=== PATIENT | male | born 1955 ===

== ENCOUNTER 2018-01-08 15:44 | Observation (INO) | payer OTHER ==
[~2018-01-08] VITALS: Ht 231.1 cm; Wt 79.5 kg
[2018-01-08] MEDS ORDERED: VITAMIN D1000 UNIT PO (15:52)
--- NOTE | 2018-01-08 16:08 | ED GI/GU/ABDOMINAL COMPLAINT ---
History of Present Illness General Chief Complaint: General Adult Stated Complaint: PT HAS A PAIN UNDER THE RT RIB Source: patient, old records Exam Limitations: no limitations Vital Signs & Intake/Output Vital Signs & Intake/Output Vital Signs Date Time Temp Pulse Resp B/P B/P Pulse O2 O2 Flow FiO2 Mean Ox Delivery Rate 01/09 0632 98.3 69 20 100/60 95 Room Air 01/09 0030 97.8 79 18 120/70 96 Room Air 01/09 0020 96 Room Air 01/08 1959 98.6 82 20 141/82 98 Room Air 01/08 1806 98.4 73 20 143/83 97 Room Air 01/08 1623 Room Air 01/08 1551 97.9 82 18 161/83 97 Room Air ED Intake and Output 01/09 0000 01/08 1200 Intake Total Output Total Balance Patient 178 lb Weight Weight Reported by Patient Measurement Method Allergies Coded Allergies: Penicillins (FAMILY SAID "VERY BAD ALLERGY" 01/08/18) Reconcile Medications Cholecalciferol (Vitamin D3) (Vitamin D) 1,000 UNIT TABLET 1 TAB PO DAILY SUPPLEMENT (Reported) Triage Note: PT TO ER C/C 5 DAY HX OF UMBILICAL ABD PAIN AND RUQ PAIN WORSE WHEN LAYING FLAT. DENIES N/V/D. DENIES URINARY S/S. PT STATES HAS HX OF GALLSTONES. Triage Nurses Notes Reviewed? yes Onset: Abrupt Duration: constant, waxing and waning Timing: recent history Quality/Severity: aching, moderate Severity Numbers: 5 Location: periumbilical, right upper quadrant Radiation: periumbilical Activities at Onset: eating Prior Abdominal Problems: similar symptoms No Modifying Factors: none Associated Symptoms: denies HPI: 62-year-old male with history of gallstones presents to ER complaining of 5 day history of right upper quadrant abdominal pain radiating to his umbilicus that's constant however waxing and waning in intensity. He denies any associated nausea vomiting diarrhea. He's been taking Tylenol without improvement. No chest pain or pain with inspiration. No fever no chills. no history of abd surgeries in the past. these symptoms started after eating easter dinner. (Estrella LOGAN,Ed) Past History Travel History Traveled to [place] past 21 day No Medical History Any Pertinent Medical History? see below for history Gastrointestinal: cholelithiasis Surgical History Surgical History: non-contributory Psychosocial History What is your primary language Irish Tobacco Use: Quit >30 days ago Family History Hx Contributory? No (Ed Zavala) Review of Systems Review of Systems Constitutional: Reports: see HPI. Comments Review of systems: See HPI, All other systems negative. Constitutional, no chills no fever, no malaise HEENT: no sore throat no congestion, Cardiovascular: No chest pain , no palpitation Skin: no rashes, no change in skin Respiratory: No dyspnea no cough GI: No nausea no vomiting, no diarrhea, no bloating/constipation : No dysuria Muscle skeletal: No joint pain, no back pain, no neck pain, Neurologic: , no headache Heme/endocrine: No bruising Immunology: No lymphadenopathy (Ed Zavala) Physical Exam Physical Exam General Appearance: well developed/nourished, alert, awake Gastrointestinal: soft, tenderness Comments: Well-developed well-nourished person in no acute distress HEENT: Normal EENT exam; PERRL, EOMI, HEAD is atraumatic. moist mucous membranes. Neck: Supple, normal range of motion Back: Nontender, no CVA tenderness. Full range of motion Cardiovascular: Regular rate and rhythms no murmurs rubs or gallops, normal JVP Respiratory: Chest nontender.There were no bony deformities, no asymmetry. No respiratory distress. Patient speaking in full complete sentences. Breath sounds clear to auscultation bilaterally: NO W/R/R Abdomen: Soft, MILD R mid tendernes, neg murphys, no rlq tenderness, nondistended, no appreciable organomegaly. Normal bowel sounds. No rebound/ guarding Extremity: No edema, full range of motion of extremities Neuro: Alert oriented x3, motor sensory normal, There were no obvious focal neurologic abnormalities. Skin: No appreciable rash on exposed skin, skin is warm and dry. no jaundice Psych: Mood and affect is normal, memory and judgment is normal. Core Measures ACS in differential dx? No Sepsis Present: No Sepsis Focused Exam Completed? Yes (Ed Zavala) Progress Differential Diagnosis: appendicitis, biliary colic, bowel obstruction, colon cancer, cholecystitis, gastritis, hepatitis, hernia, inflamm bowel dis, pyelonephritis, ureterolithiasis Plan of Care: Orders Procedure Date/time Status Clear Liquid Diet 01/09 B Active HEPATIC FUNCTION PANEL 01/09 600 Active CBC WITHOUT DIFFERENTIAL 01/09 600 Active BASIC ELECTROLYTES PLUS BUN&CR 01/09 600 Active Vital Signs 01/096 Active Teach/Educate 01/10 16 Active Pain Treatment and Response 01/10 16 Active Nutritional Intake, Monitor 01/10 16 Active Isolation 01/096 Active Intake & Output 01/096 Active Patient Care Conference 01/096 Active Activity/Ambulation 01/10 16 Active FingerStick- Glucose 01/08 2001 Active Patient Data 01/[address] in observation 01/08 185 Active ED Holding Orders 01/08 185 Active Vital Signs 01/08 185 Active Code Status 01/08 185 Active Intake & Output 01/08 1623 Active TROPONIN LEVEL 01/08 1601 Complete LIPASE 01/08 1601 Complete COMPREHENSIVE METABOLIC PANEL 01/08 1601 Complete CBC WITHOUT DIFFERENTIAL 01/08 1601 Complete AMYLASE 01/08 1601 Complete EKG 01/08 1601 Active INCENTIVE SPIROMETRY TRX (GEN) 01/08 UNK Active Current Medications Sig/Prudencio Start time Last Medication Dose Stop Time Status Admin Pantoprazole Sodium 40 MG DAILY 01/09 1000 AC (Protonix) Heparin Sodium 5,000 UNIT Q8 01/09 600 AC 01/09 (Porcine) 0527 Clindamycin 600 MG IQ8 01/09 0500 AC 01/09 (Cleocin) 01/09 162 0527 Dextrose/Water 50 ML (D5W) Morphine Sulfate 2 MG Q4-6 PRN PRN 01/08 2315 AC (Morphine) Oxycodone HCl 5 MG Q4-6 PRN PRN 01/08 2315 AC (Roxicodone) Oxycodone HCl 10 MG Q4-6 PRN PRN 01/08 2315 AC (Roxicodone) Acetaminophen 1,000 MG Q6P PRN 01/08 1915 AC (Ofirmev) N/A 1 UNIT (No Carrier) Ampicillin Sodium/ 3,000 MG ONCE ONE 01/08 1915 CAN Sulbactam Sodium 01/09 1944 (Unasyn) Sodium Chloride 100 ML (Normal Saline 0.9%) Dextrose/Sodium 1,000 ML Q8H 01/08 1915 AC 01/09 Chloride 0026 (D5-Normal Saline) Ondansetron HCl 4 MG Q6P PRN 01/08 1915 AC (Zofran) Laboratory Tests 01/09/18 0710: Sodium Pending, Potassium Pending, Chloride Pending, Carbon Dioxide Pending, Anion Gap Pending, BUN Pending, Creatinine Pending, BUN/Creatinine Ratio Pending , Total Bilirubin Pending, Direct Bilirubin Pending, AST Pending, ALT Pending, Alkaline Phosphatase Pending, Total Protein Pending, Albumin Pending, CBC w Diff Pending, WBC Pending, RBC Pending, Hgb Pending, Hct Pending, MCV Pending, MCH Pending, MCHC Pending, RDW Pending, Plt Count Pending, MPV Pending 01/08/18 1620: Anion Gap 17 H, Estimated GFR > 60, BUN/Creatinine Ratio 10.0, Glucose 133 H, Calcium 9.6, Total Bilirubin 0.6, AST 32, ALT 44, Alkaline Phosphatase 82, Troponin I < 0.01, Total Protein 7.6, Albumin 4.0, Globulin 3.6, Albumin/ Globulin Ratio 1.1, Amylase < 30 L, Lipase 33, CBC w Diff NO MAN DIFF REQ, RBC 4.60 L, MCV 91.7, MCH 30.9, MCHC 33.7, RDW 12.1, MPV 7.7, Gran % 76.8 H, Lymphocytes % 14.7 L, Monocytes % 7.6, Eosinophils % 0.5, Basophils % 0.4, Absolute Granulocytes 9.4 H, Absolute Lymphocytes 1.8, Absolute Monocytes 0.9 H, Absolute Eosinophils 0.1, Absolute Basophils 0 01/08/18 1601: Urine Color Cancelled, Urine Clarity Cancelled, Urine pH Cancelled, Ur Specific [place] Cancelled, Urine Protein Cancelled, Urine Ketones Cancelled, Urine Nitrite Cancelled, Urine Bilirubin Cancelled, Urine Urobilinogen Cancelled, Ur Leukocyte Esterase Cancelled, Ur Microscopic Cancelled, Urine Hemoglobin Cancelled, Urine Glucose Cancelled pt declining anythign for pain when offered. labs and ct ordered. 1720- patient back from CAT scan now requesting something for pain Toradol 30 mg IV ordered 1740 D/W THE PT HIS CT RESULTS, HE IS DECLINING ANYTHING STRONGER FOR PAIN WHEN OFFERED. REPORTS TORADOL DID NOT HELP, CALL PLACED TO SURGERY 181 case d/w dr man will have surgical pa jamie pt 1820 on repeat evaluation patient is again declining anything for pain stating he wants to be evaluated by the surgery team prior to being medicated with something stronger Diagnostic Imaging: Viewed by Me: CT Scan. Discussed w/RAD: CT Scan. Radiology Impression: PATIENT: DAMEON STACK PRESENT AGE: 62 PATIENT ACCOUNT NO: [id number] : 57 LOCATION: [facility] ORDERING PHYSICIAN: Ed LOGAN SERVICE DATE: 01/08/18 EXAM TYPE: CAT - CT ABD & PELVIS W IV CONTRAST EXAMINATION: CT ABDOMEN AND PELVIS WITH CONTRAST CLINICAL INFORMATION: Right upper quadrant epigastric pain. COMPARISON: None TECHNIQUE: Multidetector volumetric imaging was performed of the abdomen and pelvis following IV administration of 95 mL of Optiray 320 intravenous contrast. Sagittal and coronal reformatted images were obtained on the technologist's workstation. DLP: 296 mGy-cm FINDINGS: LUNG BASES: There is a degree of bibasilar bronchiectasis with adjacent nonmasslike mild parenchymal opacification/atelectasis/fibrosis. There is a 0.5 cm left lower lobe pulmonary nodule. No pleural effusion. LIVER, GALLBLADDER, AND BILIARY TREE: The liver is normal in size, shape, and attenuation. No focal hepatic lesion or biliary ductal dilatation is present. Cholelithiasis is demonstrated. The gallbladder is distended. There is subtle mural indistinctness and pericholecystic stranding, which is concerning for cholecystitis. PANCREAS: Unremarkable. SPLEEN: Unremarkable. ADRENAL GLANDS: Unremarkable. KIDNEYS AND URETERS: Subcentimeter hypodense lesion within the left kidney is too small to characterize and CT scan , statistically most likely to represent a cyst. Bilateral nephrograms are symmetric without hydronephrosis. No renal or ureteral calculi. BLADDER: Unremarkable. GASTROINTESTINAL TRACT: Bowel gas pattern is nonobstructive. No evidence of acute bowel inflammation. There is colonic diverticulosis without evidence of diverticulitis. The appendix is normal. ABDOMINAL WALL: No significant hernia is appreciated. LYMPH NODES: No adenopathy. VASCULAR: Minimal atherosclerotic calcification. PELVIC VISCERA: No free pelvic fluid. Prostate gland and seminal vesicles are unremarkable. OSSEOUS STRUCTURES: No acute osseous abnormalities. Degenerative disc disease at L5-S1. IMPRESSION: 1. Cholelithiasis. Distended gallbladder with mild pericholecystic stranding is concerning for acute cholecystitis. 2. No biliary ductal dilatation. 3. Unremarkable appearance of the pancreas. 4. Diverticulosis without evidence of diverticulitis. 5. A 0.5 cm left lower lobe pulmonary nodule. According to the UPDATED 2017 Fleischner Society recommendations, the advised follow-up imaging for solid nodules < 6 mm is: LOW RISK PATIENT: No routine follow-up. HIGH RISK PATIENT: Optional CT at 12 months. 6. Bibasilar lower lobe bronchiectasis with mild adjacent parenchymal opacification, consider fibrosis, atelectasis, or other consolidation. DICTATED BY: Donell Steele MD DATE/TIME DICTATED:01/08/181726 WEARING APPAREL SHAKER:BOONE DATE/TIME TRANSCRIBED:01/08/181726 CONFIDENTIAL, DO NOT COPY WITHOUT APPROPRIATE AUTHORIZATION. <Electronically signed in Other Vendor System> SIGNED BY: Donell Steele MD 01/08/18 173 Initial ED EKG: normal intervals, normal p-waves, normal QRS complex, normal sinus rhythm (Ed Zavala) Departure Departure Time of Disposition: 1900 Disposition: STILL A PATIENT Condition: Stable Clinical Impression Primary Impression: Cholecystitis Secondary Impressions: Diverticulosis, Lung nodule Referrals: Albin Salomon MD (PCP/Family) Departure Forms: Customer Survey General Discharge Information (Ed Zavala) Observation Note Spoke With: Antwon Man DO Physician Advisor Notified: VALENTE RODRIGUEZ MD Place Patient In: Non-ED OBS Care Area Rationale for Observation: My rational for observation is as follows [PRE-OP FOR LAP MELE]. PA/GUT CLEANER Co-Sign Statement Statement: ED Attending supervision documentation- [x] I saw and evaluated the patient. I have also reviewed all the pertinent lab results and diagnostic results. I agree with the findings and the plan of care as documented in the PA's/GUT CLEANER's documentation. [x] I have reviewed the ED Record and agree with the PA's/GUT CLEANER's documentation. [] Additions or exceptions (if any) to the PAs/GUT CLEANER's note and plan are summarized below: [RUQ PAINWITH HX OF CHOLELITHIASIS. CT SCAN POSSIBILITY OF ACUTE CHOLECYSTITIS. SURGERY INVOLVED.] (Valente Rodriguez MD)
[2018-01-08 16:30] LABS: ABSOLUTE BASOPHIL COUNT 0 /CUMM (0.0-0.2); ABSOLUTE EOSINOPHIL COUNT 0.1 /CUMM (0.0-0.7); ABSOLUTE GRANULOCYTE CT 9.4 /CUMM (1.4-6.5); ABSOLUTE LYMPH COUNT 1.8 /CUMM (1.2-3.4); ABSOLUTE MONOCYTE COUNT 0.9 /CUMM (0.10-0.60); BASOPHIL % 0.4 % (0.0-2.0); EOSINOPHIL % 0.5 % (0-5); GRANULOCYTE % 76.8 % (42.2-75.2); HEMATOCRIT 42.1 % (42-52); MEAN CORPUSCULAR HGB 30.9 PG (27.0-31.0); MEAN CORPUSCULAR HGB CONC 33.7 G/DL (33.0-37.0); MEAN CORPUSCULAR VOLUME 91.7 FL (80.0-94.0); MEAN PLATELET VOLUME 7.7 FL (7.4-10.4); PLATELET COUNT 252 /CUMM (130-400); RBC DISTRIBUTION WIDTH 12.1 % (11.5-14.5); WHITE BLOOD CELL COUNT 12.2 /CUMM (4.8-10.8)
--- NOTE | 2018-01-08 17:39 | CT SCAN REPORT ---
EXAMINATION: CT ABDOMEN AND PELVIS WITH CONTRAST CLINICAL INFORMATION: Right upper quadrant epigastric pain. COMPARISON: None TECHNIQUE: Multidetector volumetric imaging was performed of the abdomen and pelvis following IV administration of 95 mL of Optiray 320 intravenous contrast. Sagittal and coronal reformatted images were obtained on the technologist's workstation. DLP: 296 mGy-cm FINDINGS: LUNG BASES: There is a degree of bibasilar bronchiectasis with adjacent nonmasslike mild parenchymal opacification/atelectasis/fibrosis. There is a 0.5 cm left lower lobe pulmonary nodule. No pleural effusion. LIVER, GALLBLADDER, AND BILIARY TREE: The liver is normal in size, shape, and attenuation. No focal hepatic lesion or biliary ductal dilatation is present. Cholelithiasis is demonstrated. The gallbladder is distended. There is subtle mural indistinctness and pericholecystic stranding, which is concerning for cholecystitis. PANCREAS: Unremarkable. SPLEEN: Unremarkable. ADRENAL GLANDS: Unremarkable. KIDNEYS AND URETERS: Subcentimeter hypodense lesion within the left kidney is too small to characterize and CT scan, statistically most likely to represent a cyst. Bilateral nephrograms are symmetric without hydronephrosis. No renal or ureteral calculi. BLADDER: Unremarkable. GASTROINTESTINAL TRACT: Bowel gas pattern is nonobstructive. No evidence of acute bowel inflammation. There is colonic diverticulosis without evidence of diverticulitis. The appendix is normal. ABDOMINAL WALL: No significant hernia is appreciated. LYMPH NODES: No adenopathy. VASCULAR: Minimal atherosclerotic calcification. PELVIC VISCERA: No free pelvic fluid. Prostate gland and seminal vesicles are unremarkable. OSSEOUS STRUCTURES: No acute osseous abnormalities. Degenerative disc disease at L5-S1. IMPRESSION: 1. Cholelithiasis. Distended gallbladder with mild pericholecystic stranding is concerning for acute cholecystitis. 2. No biliary ductal dilatation. 3. Unremarkable appearance of the pancreas. 4. Diverticulosis without evidence of diverticulitis. 5. A 0.5 cm left lower lobe pulmonary nodule. According to the UPDATED 2017 Fleischner Society recommendations, the advised follow-up imaging for solid nodules < 6 mm is: LOW RISK PATIENT: No routine follow-up. HIGH RISK PATIENT: Optional CT at 12 months. 6. Bibasilar lower lobe bronchiectasis with mild adjacent parenchymal opacification, consider fibrosis, atelectasis, or other consolidation.
--- NOTE | 2018-01-08 19:27 | History & Physical Pre-Op ---
Aline Brock 01/08/181912: General Information and HPI MD Statement: I have seen and personally examined DAMEON STACK and documented this H&P. The patient is a 62 year old M who presented with a patient stated chief complaint of [abdominal pain]. Source of Information: patient Exam Limitations: no limitations History of Present Illness: This 62 year old white male presents with nearly a week of abdominal pain. He reports following eating a lot of food on Wednesday, he started having mid and right upper abdominal pain, that has persisted through the week. He believes he may have had some chills and sweats at times. No nausea/vomiting. He doesn't believe he has had episodes of biliary colic, at least not like what he has been experiencing in the last week. He denies any other recent illnesses. No dizziness. No shortness of breath. No chest pains. No difficulty urinating. No changes with bowel habits. Allergies/Medications Home Med list Cholecalciferol (Vitamin D3) (Vitamin D) 1,000 UNIT TABLET 1 TAB PO DAILY SUPPLEMENT (Reported) Past History Medical History Gastrointestinal: cholelithiasis Musculoskeletal: chronic back pain Surgical History Pertinent Surgical History: none Past Family/Social History Family History Relations & Conditions if any MOTHER Gallstones FATHER, . Colon cancer in father Psychosocial History Where Do You Live? Home Who Do You Live With? spouse Services at Home None Smoking Status: Former Smoker ETOH Use: occasional use Employment History Employment: Employed Profession/Employer: rear load truck driver Review of Systems Review of Systems: admits: abdominal pain denies: dizziness, shortness of breath, chest pains, nausea/vomiting, dysuria Exam & Diagnostic Data Last 24 Hrs of Vital Signs/I&O Vital Signs Date Time Temp Pulse Resp B/P B/P Pulse O2 O2 Flow FiO2 Mean Ox Delivery Rate 01/08 1806 98.4 73 20 143/83 97 Room Air 01/08 1623 Room Air 01/08 1551 97.9 82 18 161/83 97 Room Air Intake & Output 01/08 1600 01/08 0800 01/08 0000 Intake Total Output Total Balance Patient 178 lb Weight Weight Reported by Patient Measurement Method Physical Exam: General - alert & oriented x 3. uncomfortable. no acute distress. Skin - warm, dry, and smooth. no jaundice appreciated. no rashes. Lungs - clear bilaterally. no w/r/r. Cardiac - s1s2. reg. Abdomen - soft. right upper quadrant tenderness appreciated with +murphys sign. no scars seen. Extremities - warm bilaterally. no c/c/e. calves soft and nontender b/l. Neuro - speech smooth and coordinated. no motor or sensory deficits appreciated. Last 24 Hrs of Labs/Imtiaz: Laboratory Tests 01/08/18 1620: Anion Gap 17 H, Estimated GFR > 60, BUN/Creatinine Ratio 10.0, Glucose 133 H, Calcium 9.6, Total Bilirubin 0.6, AST 32, ALT 44, Alkaline Phosphatase 82, Troponin I < 0.01, Total Protein 7.6, Albumin 4.0, Globulin 3.6, Albumin/ Globulin Ratio 1.1, Amylase < 30 L, Lipase 33, CBC w Diff NO MAN DIFF REQ, RBC 4.60 L, MCV 91.7, MCH 30.9, MCHC 33.7, RDW 12.1, MPV 7.7, Gran % 76.8 H, Lymphocytes % 14.7 L, Monocytes % 7.6, Eosinophils % 0.5, Basophils % 0.4, Absolute Granulocytes 9.4 H, Absolute Lymphocytes 1.8, Absolute Monocytes 0.9 H, Absolute Eosinophils 0.1, Absolute Basophils 0 01/08/18 1601: Urine Color Cancelled, Urine Clarity Cancelled, Urine pH Cancelled, Ur Specific [place] Cancelled, Urine Protein Cancelled, Urine Ketones Cancelled, Urine Nitrite Cancelled, Urine Bilirubin Cancelled, Urine Urobilinogen Cancelled, Ur Leukocyte Esterase Cancelled, Ur Microscopic Cancelled, Urine Hemoglobin Cancelled, Urine Glucose Cancelled Diagnostic Data Other Results EXAM TYPE: CAT - CT ABD & PELVIS W IV CONTRAST EXAMINATION: CT ABDOMEN AND PELVIS WITH CONTRAST CLINICAL INFORMATION: Right upper quadrant epigastric pain. COMPARISON: None TECHNIQUE: Multidetector volumetric imaging was performed of the abdomen and pelvis following IV administration of 95 mL of Optiray 320 intravenous contrast. Sagittal and coronal reformatted images were obtained on the technologist's workstation. DLP: 296 mGy-cm FINDINGS: LUNG BASES: There is a degree of bibasilar bronchiectasis with adjacent nonmasslike mild parenchymal opacification/atelectasis/fibrosis. There is a 0.5 cm left lower lobe pulmonary nodule. No pleural effusion. LIVER, GALLBLADDER, AND BILIARY TREE: The liver is normal in size, shape, and attenuation. No focal hepatic lesion or biliary ductal dilatation is present. Cholelithiasis is demonstrated. The gallbladder is distended. There is subtle mural indistinctness and pericholecystic stranding, which is concerning for cholecystitis. PANCREAS: Unremarkable. SPLEEN: Unremarkable. ADRENAL GLANDS: Unremarkable. KIDNEYS AND URETERS: Subcentimeter hypodense lesion within the left kidney is too small to characterize and CT scan, statistically most likely to represent a cyst. Bilateral nephrograms are symmetric without hydronephrosis. No renal or ureteral calculi. BLADDER: Unremarkable. GASTROINTESTINAL TRACT: Bowel gas pattern is nonobstructive. No evidence of acute bowel inflammation. There is colonic diverticulosis without evidence of diverticulitis. The appendix is normal. ABDOMINAL WALL: No significant hernia is appreciated. LYMPH NODES: No adenopathy. VASCULAR: Minimal atherosclerotic calcification. PELVIC VISCERA: No free pelvic fluid. Prostate gland and seminal vesicles are unremarkable. OSSEOUS STRUCTURES: No acute osseous abnormalities. Degenerative disc disease at L5-S1. IMPRESSION: 1. Cholelithiasis. Distended gallbladder with mild pericholecystic stranding is concerning for acute cholecystitis. 2. No biliary ductal dilatation. 3. Unremarkable appearance of the pancreas. 4. Diverticulosis without evidence of diverticulitis. 5. A 0.5 cm left lower lobe pulmonary nodule. According to the UPDATED 2017 Fleischner Society recommendations, the advised follow-up imaging for solid nodules < 6 mm is: LOW RISK PATIENT: No routine follow-up. HIGH RISK PATIENT: Optional CT at 12 months. 6. Bibasilar lower lobe bronchiectasis with mild adjacent parenchymal opacification, consider fibrosis, atelectasis, or other consolidation. DICTATED BY: Donell Steele MD DATE/TIME DICTATED:01/08/181726 GARDENING SUPERVISOR:BOONE DATE/TIME TRANSCRIBED:01/08/181726 Assessment/Plan Assessment/Plan: This 62 year old male with no significant past medical history presents with nearly a week of abdominal pain, and CT imaging suggesting acute calculous cholecystitis npo since veggie broth around noon except for sips of water iv antibiotics to be given in ED pain medication as needed laparoscopic vs open cholecystectomy by shortly, to be consented full code status 23 hour observation given possibility of discharge to home tomorrow As Ranked By This Provider Problem List: 1. Cholecystitis Copies To: Umm MCKINLEY,Albin Swartz Antwon Man DO 01/08/18 6688: General Information and HPI Allergies/Medications Allergies: Coded Allergies: Penicillins (FAMILY SAID "VERY BAD ALLERGY" 01/08/18) Attending MD Review Statement Attending Statement Attending MD Statement: examined this patient, discuss w/resident/PA/SUPERVISOR DRY CLEANING, agreed w/resident/PA/SUPERVISOR DRY CLEANING, discussed with family, reviewed EMR data (avail), reviewed images Attending Assessment/Plan: Patient seen and examined, agree with above. Abdominal pain for several days, has been getting worse especially with food. AVSS. Abd-soft, +RUQ tenderness with guarding. Labs WBC 12. CT scan - acute cholecystitis. NPO/IVF/IV Abx, plan for Lap Shannon tonight. D/W patient, family and staff.
--- NOTE | 2018-01-08 19:28 | Admission Core Measures ---
Acute Coronary Syndrome (CM) ACS Core Measures Acute Coronary Syndrome Diagnosis No Congestive Heart Failure (NEW) CHF Core Measures Congestive Heart Failure Diagnosis No Cerebrovascular Accident (NEW) CVA Core Measures CVA/TIA Diagnosis No Venous Thromboembolism VTE Core Darrell (View Protocol) VTE Risk Factors Surgery No Mechanical VTE Prophylaxis d/t N/A MechProphylax Ordered No VTE Pharm Prophylaxis d/t NA PharmProphylax ordered Problem List As ranked by this Provider includes Assessment & Plan 1. Cholecystitis HOME MEDS Home Med List Cholecalciferol (Vitamin D3) (Vitamin D) 1,000 UNIT TABLET 1 TAB PO DAILY SUPPLEMENT (Reported)
--- NOTE | 2018-01-08 23:20 | Operative Report ---
Operative/Inv Procedure Report Surgery Date: 01/08/18 Name of Procedure: Laparoscopic Cholecystectomy Pre-Operative Diagnosis: Acute/Chronic cholecystitis/cholelithiasis Post-Operative Diagnosis: Same Estimated Blood Loss: 150 ml Surgeon/Respiratory Medicine Physician: Antwon Man DO Anesthesia: general endotracheal tube IV Fluids: 1800 cc Drains: None Specimens: Gallbladder Complications: None Condition: Stable Operative Indication: This is a 62-year-old male that presented to the emergency room with several days of abdominal pain. After appropriate workup was completed patient was diagnosed with acute cholecystitis. A laparoscopic possible open cholecystectomy was discussed in detail. All risks including but not limited to bleeding, infection, bile leak, and injury to surrounding duct/bowel were discussed in detail. The patient understood everything and decided to proceed. Operative/Procedure Note Note: The patient was brought to the operating room and placed on the operating room table in supine position. Venodyne stockings were placed and adequate general endotracheal anesthesia was obtained. The patient was prepped and draped in standard surgical fashion. We began the procedure by making a 2 cm transverse incision in the infraumbilical crease. The incision was carried down to the fascia, once the fascia was clearly visualized it was picked up between 2 satish clamps. The fascia was divided in the midline and once we entered the peritoneum 2 stay 0 Vicryl sutures were placed on each side. A 12 mm blunt port was inserted and the abdominal cavity was insufflated to 15 mmHg. A 10 mm 30 laparoscope was introduced and upon initial examination no obvious gross pathology was seen. We did note a markedly distended gallbladder in the right upper quadrant. Accessory trochars were placed, all 5 mm, one in the epigastrium and 2 in the right upper quadrant (one in the midclavicular line and one in the anterior axillary line, both 2 fingerbreadths below the costal margin ). We attempted to decompress the gallbladder with the decompression needle, however there was very thick bile and it wasnt draining through the needle. The gallbladder was grasped with the lateralmost trocar and retracted up over the liver. Using the other 2 accessory trocars the infundibulum was grasped and the peritoneum was lysed using blunt dissection and using hook electrocautery. Dissection took some time due to chronic inflammation and thick wall. The cystic duct and cystic artery were visualized. The common bile duct was visualized and it was away from our area of dissection. The cystic duct and artery were skeletonized and divided between clips, 3 clips to stay and one clip on the gallbladder side for the duct and 2 clips to stay and one clip on the gallbladder side for the artery. The gallbladder was dissected off the liver bed using hook electrocautery maintaining hemostasis. Once again dissection took some time due to chronic inflammation. Prior to completely removing the gallbladder off the liver bed we examined the area of dissection no obvious bile leak or bleeding was noted, the clips appeared to be in good position. The gallbladder was completely detached from the liver bed. We switched to a 5 mm laparoscope and a 10 mm Endobag was introduced through the umbilical trocar site. The gallbladder was placed in the bag and removed through the umbilicus. The abdomen was reinsufflated. We switched back to a 10 mm laparoscope and examined our area of dissection. No obvious bile leak or bleeding was noted. There was a lot of oozing from the liver bed so 2 pieces of surgicel were used to pack the gallbladder fossa. The right upper quadrant was irrigated until clear. All ports were removed under direct visualization, no obvious bleeding was noted. The umbilical trocar site was closed using 0 Vicryl suture. The skin was closed using 4-0 Monocryl. Steri-Strips and dressings were placed. The patient was successfully extubated and transferred to the recovery room in stable condition. The patient tolerated the procedure well with no complications. Findings: Markedly distended gallbladder, very thick gallbladder wall, large gallstones CC: Umm MCKINLEY,Albin Swartz
--- NOTE | 2018-01-08 23:24 | RADIOLOGY REPORT ---
EXAMINATION: XR PORTABLE CHEST CLINICAL INFORMATION: Atelectasis rule out pneumonia hypoxia COMPARISON: None TECHNIQUE: Portable frontal view of the chest was obtained. FINDINGS: Left hemidiaphragm is obscured probably by underlying infiltrate atelectasis and/or pleural effusion. There is only mild vascular congestion. IMPRESSION: Left pleural effusion with probably underlying infiltrate and/or atelectasis. Follow-up chest PA and lateral recommended when patient's condition permits.
[2018-01-09 00:30] VITALS: BP 120/70
[2018-01-09 06:32] VITALS: BP 100/60
[2018-01-09 08:17] LABS: ABSOLUTE BASOPHIL COUNT 0 /CUMM (0.0-0.2); ABSOLUTE EOSINOPHIL COUNT 0 /CUMM (0.0-0.7); ABSOLUTE GRANULOCYTE CT 6.2 /CUMM (1.4-6.5); ABSOLUTE LYMPH COUNT 0.8 /CUMM (1.2-3.4); ABSOLUTE MONOCYTE COUNT 0.3 /CUMM (0.10-0.60); BASOPHIL % 0.2 % (0.0-2.0); EOSINOPHIL % 0 % (0-5); GRANULOCYTE % 84.1 % (42.2-75.2); MEAN CORPUSCULAR HGB 31.3 PG (27.0-31.0); MEAN CORPUSCULAR HGB CONC 33.8 G/DL (33.0-37.0); MEAN CORPUSCULAR VOLUME 92.5 FL (80.0-94.0); MEAN PLATELET VOLUME 8.1 FL (7.4-10.4); PLATELET COUNT 226 /CUMM (130-400); RBC DISTRIBUTION WIDTH 12.4 % (11.5-14.5); RED BLOOD CELL CT 3.76 /CUMM (4.70-6.10); WHITE BLOOD CELL COUNT 7.3 /CUMM (4.8-10.8)
[2018-01-09 09:15] LABS: HEMATOCRIT 34.8 % (42-52)
--- NOTE | 2018-01-09 10:16 | PN- General Surgery ---
Subjective Subjective: PT IN BED, PAIN CONTROLLED, WANTS TO GO HOME TODAY. VOIDING, PASSING GAS, NO BM AMBULATING DENEIS NAUSEA, TOLERATING CLEARS DENIES CP/SOB, FEVERS Objective Vital Signs and I&Os Vital Signs Date Time Temp Pulse Resp B/P B/P Pulse O2 O2 Flow FiO2 Mean Ox Delivery Rate 01/09 0632 98.3 69 20 100/60 95 Room Air 01/09 0030 97.8 79 18 120/70 96 Room Air 01/09 0020 96 Room Air 01/08 1959 98.6 82 20 141/82 98 Room Air 01/08 1806 98.4 73 20 143/83 97 Room Air 01/08 1623 Room Air 01/08 1551 97.9 82 18 161/83 97 Room Air Intake & Output 01/09 1600 01/09 0801/09 0000 01/08 1600 01/08 0000 Intake Total 1040 Output Total 500 Balance 540 Intake, IV 800 Intake, Oral 240 Number 0 Bowel Movements Output, Urine 500 Patient 175 lb 178 lb Weight Weight Reported by Patient Measurement Method Physical Exam: GEN-NAD, RESTING COMFORTABLY RESP-CLEAR CARDIAC-RRR ABD- ND, +BS, SOFT, NT. DRESSINGS CLEAN AND DRY Current Medications: Current Medications Sig/Prudencio Start time Last Medication Dose Route Stop Time Status Admin Acetaminophen 1,000 MG Q6P PRN 01/08 1915 AC N/A 1 UNIT IV Ampicillin Sodium/ 0 .STK-MED ONE 01/09 1920 DC Sulbactam Sodium .ROUTE Ampicillin Sodium/ 3,000 MG ONCE ONE 01/08 1915 CAN Sulbactam Sodium IV 01/08 194 Sodium Chloride 100 ML Ceftriaxone Sodium 0 .STK-MED ONE 01/08 1931 DC .ROUTE Ceftriaxone Sodium 1,000 MG ONCE ONE 01/08 1930 DC 01/08 IV 01/08 1931 193 Clindamycin 600 MG IQ8 01/09 0500 AC 01/09 Dextrose/Water 50 ML IV 01/09 162 0527 Dextrose/Sodium 1,000 ML Q8H 01/08 1915 AC 01/09 Chloride IV 0830 Fentanyl Citrate 250 MCG .STK-MED ONE 01/08 2013 DC IM 01/08 2014 Fentanyl Citrate 100 MCG .STK-MED ONE 01/08 2013 DC IM 01/08 2014 Heparin Sodium 5,000 UNIT Q8 01/09 06 AC 01/09 (Porcine) SC 0527 Ketorolac 30 MG Q6-PRN PRN 01/08 1915 DC Tromethamine IV Ketorolac 0 .STK-MED ONE 01/08 173 DC Tromethamine .ROUTE Ketorolac 30 MG ONCE ONE 01/08 1730 DC 01/08 Tromethamine IV 01/08 1731 1727 Metronidazole 500 MG ONCE ONE 01/08 1930 DC 01/08 N/A 1 UNIT IV 01/08 Midazolam HCl 2 MG .STK-MED ONE 01/08 2014 DC IM 01/08 2015 Morphine Sulfate 2 MG Q4-6 PRN PRN 01/08 2315 AC IV Ondansetron HCl 4 MG Q6P PRN 01/08 1915 AC IV Oxycodone HCl 5 MG Q4-6 PRN PRN 01/08 2315 AC PO Oxycodone HCl 10 MG Q4-6 PRN PRN 01/08 231 AC PO Pantoprazole Sodium 40 MG DAILY 01/09 1000 AC 01/09 IV 0830 Results Last 48 Hours of Labs: Laboratory Tests 01/09 01/08 0710 1620 Chemistry Sodium (137 - 145 mmol/L) 141 140 Potassium (3.5 - 5.1 mmol/L) 4.4 3.8 Chloride (98 - 107 mmol/L) 104 102 Carbon Dioxide (22 - 30 mmol/L) 24 21 L Anion Gap (5 - 16) 13 17 H BUN (9 - 20 mg/dL) 8 L 8 L Creatinine (0.7 - 1.2 mg/dL) 0.8 0.8 Estimated GFR (>60 ml/min) > 60 > 60 BUN/Creatinine Ratio (7 - 25 %) 10.0 10.0 Glucose (65 - 99 mg/dL) 133 H Calcium (8.4 - 10.2 mg/dL) 9.6 Total Bilirubin (0.2 - 1.3 mg/dL) 0.6 0.6 Direct Bilirubin (< 0.4 mg/dL) 0.4 AST (17 - 59 U/L) 92 H 32 ALT (21 - 72 U/L) 101 H 44 Alkaline Phosphatase (< 127 U/L) 68 82 Troponin I (<0.11 ng/ml) < 0.01 Total Protein (6.3 - 8.2 g/dL) 6.0 L 7.6 Albumin (3.5 - 5.0 g/dL) 3.1 L 4.0 Globulin (1.9 - 4.2 gm/dL) 3.6 Albumin/Globulin Ratio (1.1 - 2.2 %) 1.1 Amylase (30 - 110 U/L) < 30 L Lipase (23 - 300 U/L) 33 Hematology CBC w Diff NO MAN DIFF REQ NO MAN DIFF REQ WBC (4.8 - 10.8 /CUMM) 7.3 12.2 H RBC (4.70 - 6.10 /CUMM) 3.76 L 4.60 L Hgb (14.0 - 18.0 G/DL) 11.8 L 14.2 Hct (42 - 52 %) 34.8 L 42.1 MCV (80.0 - 94.0 FL) 92.5 91.7 MCH (27.0 - 31.0 PG) 31.3 H 30.9 MCHC (33.0 - 37.0 G/DL) 33.8 33.7 RDW (11.5 - 14.5 %) 12.4 12.1 Plt Count (130 - 400 /CUMM) 226 252 MPV (7.4 - 10.4 FL) 8.1 7.7 Gran % (42.2 - 75.2 %) 84.1 H 76.8 H Lymphocytes % (20.5 - 51.1 %) 11.1 L 14.7 L Monocytes % (1.7 - 9.3 %) 4.6 7.6 Eosinophils % (0 - 5 %) 0 0.5 Basophils % (0.0 - 2.0 %) 0.2 0.4 Absolute Granulocytes (1.4 - 6.5 /CUMM) 6.2 9.4 H Absolute Lymphocytes (1.2 - 3.4 /CUMM) 0.8 L 1.8 Absolute Monocytes (0.10 - 0.60 /CUMM) 0.3 0.9 H Absolute Eosinophils (0.0 - 0.7 /CUMM) 0 0.1 Absolute Basophils (0.0 - 0.2 /CUMM) 0 0 04/07 1601 Urines Urine Color Cancelled Urine Clarity Cancelled Urine pH Cancelled Ur Specific [place] Cancelled Urine Protein Cancelled Urine Ketones Cancelled Urine Nitrite Cancelled Urine Bilirubin Cancelled Urine Urobilinogen Cancelled Ur Leukocyte Esterase Cancelled Ur Microscopic Cancelled Urine Hemoglobin Cancelled Urine Glucose Cancelled Assessment/Plan Assessment/Plan 62YO M SP LAP MELE POD1. STABLE PO PAIN MEDS ADVANCE TO LOW FAT DIET NO NEED FOR MORE ABX DVT PPX- HEPARIN, ALPS, EARLY AMBULATION REG HOME MEDS PLAN FOR DC TO HOME TODAY WITH INSTRUCTIONS TO FOLLOW-UP WITH DR CALIX IN 7-10 DAYS OUTPATIENT Core Measures Venous Thromboembolism VTE Risk Factors Surgery No Mechanical VTE Prophylaxis d/t N/A MechProphylax Ordered No VTE Pharm Prophylaxis d/t NA PharmProphylax ordered
[2018-01-09] MEDS ORDERED: PERCOCET 5-3251 EACH PO (10:19)
--- NOTE | 2018-01-09 10:29 | Patient Discharge Instructions ---
Discharge Instructions General Discharge Information You were seen/treated for: cholecystitis You had these procedures: laproscopic cholecystectomy Watch for these problems: fever over 101 nausea/vomiting redness around or drainage from wounds Call Surgeon to remove: wound check in 1 week No bath, but you may shower: Yes Other wound care: remove dressing 01/10, then keep wounds covered with a clean dry dressing until wounds are completely dry Diet Recommended Diet: Low Fat Activity Activity Self Limited: Yes Pounds, do NOT lift more than: 10 Acute Coronary Syndrome Inclusion Criteria At DC or during hospital stay patient has or had the following: ACS DIAGNOSIS No Discharge Core Measures Meds if any: Prescribed or Continued at Discharge Meds if any: NOT Prescribed or Continued at Discharge Congestive Heart Failure Inclusion Criteria At DC or during hospital stay patient has or had the following: CHF DIAGNOSIS No Discharge Core Measures Meds if any: Prescribed or Continued at Discharge Meds if any: NOT Prescribed or Continued at Discharge Cerebrovascular accident Inclusion Criteria At DC or during hospital stay patient has or had the following: CVA/TIA Diagnosis No Discharge Core Measures Meds if any: Prescribed or Continued at Discharge Meds if any: NOT Prescribed or Continued at Discharge Venous thromboembolism Inclusion Criteria VTE Diagnosis No VTE Type NONE VTE Confirmed by (Test) NONE Discharge Core Measures - Per Current guidelines, there needs to be overlap - treatment for the first 5 days of Warfarin therapy. - If discharged on Warfarin prior to 5 days of - overlap therapy, the patient will need to be - assessed for post discharge needs including - *Post discharge parental anticoagulation - *Warfarin and/or parental anticoagulation education - *Follow up date to check INR post discharge At least 5 days overlap therapy as Inpatient No Meds if any: Prescribed or Continued at Discharge Note: Overlap Therapy is Warfarin and Anticoagulant Meds if any: NOT Prescribed or Continued at Discharge
== END 2018-01-09 13:22 ==
LOC: ERH 15:44 → ERHI 18:53 → ENRESERV 19:36 → 2NB 01-09 00:15 → ENPENDDIS 01-09 10:20 → 2NB 01-09 13:22
PROVIDERS: Emergency Medicine; Physician Assistant
DX: K80.12 Calculus of gallbladder with acute and chronic cholecystitis without obstruction (principal); M54.9 Dorsalgia, unspecified
CPT/HCPCS: 1255; 6040; 36415; 71045; 74177; 82436; 93005; 93010; 96372; 96374; 96375; C9399; G0378; J0131; J0696; J1644; J1885; J2405; J7042